=== PATIENT | female | born 2000 | race Hispanic/Latino ===

== ENCOUNTER 2024-07-30 15:54 | Emergency (ER) | payer OTHER ==
[~2024-07-30] VITALS: Ht 160 cm; Wt 81.6 kg
[2024-07-30 16:15] VITALS: PULSE 87; RESP 18; TEMP 98.7
[2024-07-30 19:53] VITALS: BP 138/89; PULSE 86; RESP 18; TEMP 98.7; O2SAT 100
== END 2024-07-30 19:53 | disposition home or self-care (01) ==
LOC: FSED 15:59
DX: R60.9 Edema, unspecified (principal); D50.9 Iron deficiency anemia, unspecified
CPT/HCPCS: 93970; 99283